=== PATIENT | female | born 1960 | race Native Hawaiian/Other Pacific Islander ===

== ENCOUNTER 2016-12-24 08:56 | Outpatient (CLI) | payer OTHER | END 2016-12-24 10:15 | disposition home or self-care (01) | LOC: MAMMO 08:56 | DX: Z12.31 Encounter for screening mammogram for malignant neoplasm of breast (principal) ==

== ENCOUNTER 2017-06-17 10:55 | Outpatient (CLI) | payer OTHER | END 2017-06-17 21:59 | disposition home or self-care (01) | LOC: RAD 10:55 | DX: Z01.818 Encounter for other preprocedural examination (principal) ==